=== PATIENT | male | born 1955 | race Caucasian/White ===

== ENCOUNTER 2020-06-07 06:30 | Day surgery (SDC) | payer OTHER, BC ==
[~2020-06-07] VITALS: Ht 170.2 cm; Wt 97.7 kg
[~2020-06-07 06:30] MED LIST: ACETAMINOPHEN-1 EAC1 PO; ALPRAZOLAM0.5 MG PO; CYCLOBENZAPRINE10 MG PO; HYZAAR 100-12.1 EACH PO; LOSARTAN-HCTZ1 EAC2 PO; PERCOCET 5-3251 EACH PO; SERTRALINE HCL100 MG PO; SIMVASTATIN40 MG PO
--- NOTE | 2020-06-07 08:31 | NUR ---
JOSE NERI REQUESTED I NOT DISTURB PT AT [facility] TIME. WILL FOLLOW
--- NOTE | 2020-06-07 08:42 | NUR ---
06/07/20 0842 Patsy Serna 0836 PATIENT ARRIVES TO PACU SLEEPING, DOES NOT RESPOND TO VERBAL STIMULI. RESP EVEN AND UNLABORED, NC AT 3 LITERS, SATS >95%.
--- NOTE | 2020-06-07 09:48 | OR ---
[facility] [address], [place] [address] Signed DATE OF OPERATION: 06/07/2020 SURGEON: Pepe Garcia MD PREOPERATIVE DIAGNOSES: 1. Personal history of adenomatous colonic polyps in 2007. 2. Diverticulosis. POSTOPERATIVE DIAGNOSES: 1. Moderate internal hemorrhoids. 2. Minimal sigmoid diverticulosis. PROCEDURE: Colonoscopy biopsy. ESTIMATED BLOOD LOSS: None. INDICATIONS: Baron is a 65-year-old gentleman, asked to see me for a followup colonoscopy. He had adenomatous polyps removed back in 2007 while living in [place], [place]. He is known to have left-sided diverticulosis. His followup colonoscopy in 2012 with myself confirmed his diverticulosis. He returns now for his interval colonoscopy. He has no lower GI complaints. There is no family history of colon cancer or polyps. However, he has significant past medical history and requires Tylenol with codeine up to 40 tablets a month for his chronic joint pain. He also has to use alprazolam and Flexeril as needed. In that regard, we asked the anesthesia provider to help us with an increased monitoring and sedation with propofol. In the office, I had given him a pamphlet on colonoscopy and we looked at that together along with the risks including, but not limited to gas bloating, crampy abdominal pain, bleeding, perforation requiring surgery, and missed diagnosis. We also discussed the need for the IV conscious sedation as reviewed above. He had expressed understanding and wished to proceed. DESCRIPTION OF PROCEDURE: Baron was taken into our endoscopy suite and placed in the left lateral decubitus position. He was given IV sedation with propofol per our nurse lead infrastructure architect. A digital rectal exam was performed and this was unremarkable. His prostate is [id number] indurated and enlarged. The adult colonoscope was then introduced and advanced quite readily around into the cecum itself without difficulty. His prep was quite excellent. We could easily see the appendiceal orifice and the ileocecal valve. The scope was Electronically Signed By: PEPE GARCIA MD 06/07/20 0948 PATIENT NAME: BARON STAHL OPERATIVE REPORT DATE OF : 57 REPORT #: [id number] PHYSICIAN: PEPE GARCIA MD PCP: NAILA WORTHY MD REPORT IS CONFIDENTIAL AND NOT TO BE RELEASED WITHOUT AUTHORIZATION [facility] [address], [place] [address] Signed slowly withdrawn. Multiple pictures were taken throughout for photodocumentation. We could see he does have diverticula in the sigmoid colon. They were moderate in size, few in number, and scattered about. No polyps on this occasion. The rectum was unremarkable. Upon retroflexion of scope, he does have at least one moderate large internal hemorrhoid column. After this, the gas was suctioned out and colonoscope removed. Baron tolerated the procedure quite well. RECOMMENDATIONS: Baron can resume in 5 years for repeat colonoscopy. Pepe Garcia MD ALB/MODL /[id number] cc: MD Naila Gregory MD Copies: PEPE GARCIA MD, RUSSELL BARR MD ~ Electronically Signed By: PEPE GARCIA MD 06/07/20 0948 PATIENT NAME: BARON STAHL OPERATIVE REPORT DATE OF : 57 REPORT #: [id number] PHYSICIAN: PEPE GARCIA MD PCP: NAILA WORTHY MD REPORT IS CONFIDENTIAL AND NOT TO BE RELEASED WITHOUT AUTHORIZATION
== END 2020-06-07 09:10 | disposition home or self-care (01) ==
LOC: OPS 06:30 → DS 06:30 → OPS 06:45 → DS 09:15 → OPS 09:15
PROVIDERS: ATTEND Colon & Rectal Surgery
PROC: 0DJD8ZZ Inspection of Lower Intestinal Tract, Via Natural or Artificial Opening Endoscopic (ICD-10-PCS; principal; 2020-06-07 06:45)
DX: K64.8 Other hemorrhoids (principal); K57.30 Diverticulosis of large intestine without perforation or abscess without bleeding; I10 Essential (primary) hypertension; J44.9 Chronic obstructive pulmonary disease, unspecified; Z86.010 Personal history of colon polyps; Z79.899 Other long term (current) drug therapy
CPT/HCPCS: J2704

== ENCOUNTER 2022-03-03 16:14 | Emergency (ER) | payer MEDICARE, BC ==
[~2022-03-03] VITALS: Ht 170.2 cm; Wt 87.9 kg
--- OUTSIDE RECORDS SUMMARY | 2022-03-03 16:18 | XMS ---
PreManage Notification: CORWIN STAHL Security Underlay Stitcher Events No recent Security Events currently on file CRITERIA MET - [facility] CARE PROVIDERS There are no care providers on record at this time. [facility] has no Care Guidelines for this patient. Efren VISIT COUNT (12 MO.) 1 MELISSA Ramos TOTAL 1 NOTE: Visits indicate total known visits. ED/C VISIT TRACKING (12 MO.) 03/03/2022 16:15 MELISSA Lind OR TYPE: Emergency COMPLAINT: - LT HAND LACERATION INPATIENT VISIT TRACKING (12 MO.) No inpatient visits to display in this time frame [email or web address]
[2022-03-03] MEDS ORDERED: HYDROCODON-ACE1 EA10 PO (17:34)
[2022-03-03] MEDS ORDERED: CEPHALEXIN500 M1 PO (17:34)
== END 2022-03-03 18:16 | disposition home or self-care (01) ==
LOC: ED 16:14
DX: S61.212A Laceration without foreign body of right middle finger without damage to nail, initial encounter (principal); I10 Essential (primary) hypertension; E78.5 Hyperlipidemia, unspecified; Z23 Encounter for immunization; Z79.899 Other long term (current) drug therapy; W26.9XXA Contact with unspecified sharp object(s), initial encounter
CPT/HCPCS: 12004; 73130; 90471; 90715; 99283-25